=== PATIENT | male | born 1980 | race Caucasian/White ===

== ENCOUNTER 2017-07-20 19:52 | Emergency (ER) | payer MEDICAID ==
[~2017-07-20] VITALS: Ht 175.3 cm; Wt 85.3 kg
[2017-07-20 20:24] VITALS: Ht 175.3 cm; Wt 85.3 kg
[2017-07-20 22:44] VITALS: BP 136/89
== END 2017-07-20 22:44 | disposition home or self-care (01) ==
LOC: ED 19:52
DX: S16.1XXA Strain of muscle, fascia and tendon at neck level, initial encounter (principal); S00.33XA Contusion of nose, initial encounter; S00.531A Contusion of lip, initial encounter; Y04.8XXA Assault by other bodily force, initial encounter; Y93.89 Activity, other specified; Y92.89 Other specified places as the place of occurrence of the external cause; Y99.8 Other external cause status

== ENCOUNTER 2018-10-15 14:07 | Emergency (ER) | payer MEDICAID ==
[~2018-10-15] VITALS: Ht 175.3 cm; Wt 79.4 kg
[2018-10-15 14:24] VITALS: Ht 175.3 cm; Wt 79.4 kg
[2018-10-15 16:05] VITALS: BP 131/85
== END 2018-10-15 16:00 | disposition home or self-care (01) ==
LOC: ED 14:07
DX: H10.211 Acute toxic conjunctivitis, right eye (principal)
CPT/HCPCS: J7030; V2632

== ENCOUNTER 2018-11-16 19:11 | Emergency (ER) | payer MEDICAID ==
[~2018-11-16] VITALS: Ht 175.3 cm; Wt 77.1 kg
[2018-11-16 19:38] VITALS: Ht 175.3 cm; Wt 77.1 kg
[2018-11-16 20:47] VITALS: BP 128/84
== END 2018-11-16 20:47 | disposition home or self-care (01) ==
LOC: ED 19:11
DX: S00.81XA Abrasion of other part of head, initial encounter (principal); L03.811 Cellulitis of head [any part, except face]; X58.XXXA Exposure to other specified factors, initial encounter; Y93.89 Activity, other specified; Y92.89 Other specified places as the place of occurrence of the external cause; Y99.8 Other external cause status

== ENCOUNTER 2019-03-12 12:18 | Emergency (ER) | payer MEDICAID ==
[~2019-03-12] VITALS: Ht 175.3 cm; Wt 78.0 kg
[2019-03-12 12:35] VITALS: Ht 175.3 cm; Wt 78.0 kg
[2019-03-12 13:30] VITALS: BP 155/92
== END 2019-03-12 13:30 | disposition home or self-care (01) ==
LOC: ED 12:18
DX: F41.9 Anxiety disorder, unspecified (principal); F17.210 Nicotine dependence, cigarettes, uncomplicated; R51 Headache; G47.00 Insomnia, unspecified